=== PATIENT | female | born 1980 | race Hispanic/Latino ===

== ENCOUNTER 2016-07-14 13:55 | Emergency (ER) | payer OTHER ==
[2016-07-14 14:11] VITALS: BP 144/87
[2016-07-14] MEDS ORDERED: MOTRIN PO ONE (18:19)
[2016-07-14] MEDS ORDERED: BOOSTRIX IM ONE (18:19)
--- NOTE | 2016-07-14 18:19 | Emergency Department Report ---
ED Laceration HPI - HPI Chief Complaint: Wound/Laceration Stated Complaint: SLICED THUMB Time Seen by Provider: 07/14/16 18:15 Occurred When: Today Severity: mild Tetanus Status: Not up to Date Laceration Symptoms: Yes Pain, No Foreign Body Sensation, No Numbness, No Weakness Other History: 36-year-old female past medical history none presents with complaint of laceration to right distal thumb. Patient states that she was using a instrument to cut vegetables which slipped in her hand and cut her thumb earlier today. Patient has visible small flap of skin left distal thumb patient states her tetanus is not up-to-date. ED Review of Systems ROS: Stated complaint: SLICED THUMB Other details as noted in HPI Constitutional: denies: chills, fever Eyes: denies: eye pain, eye discharge, vision change ENT: denies: ear pain, throat pain Respiratory: denies: cough, shortness of breath, wheezing Cardiovascular: denies: chest pain, palpitations Endocrine: no symptoms reported Gastrointestinal: denies: abdominal pain, nausea, diarrhea Genitourinary: denies: urgency, dysuria, discharge Musculoskeletal: denies: back pain, joint swelling, arthralgia Skin: denies: rash, lesions Neurological: denies: headache, weakness, paresthesias Psychiatric: denies: anxiety, depression Hematological/Lymphatic: denies: easy bleeding, easy bruising ED Past Medical Hx - Past Medical History Previous Medical History?: No - Surgical History Past Surgical History?: Yes Hx Cholecystectomy: Yes - Social History Smoking Status: Current Every Day Smoker Substance Use Type: None - Medications Home Medications: Home Medications Medication Instructions Recorded Confirmed Last Taken Type Cephalexin [Keflex] 500 mg PO Q12HR #10 cap 07/14/16 Unknown Rx Ibuprofen [Motrin] 600 mg PO Q8H PRN #30 tablet 07/14/16 Unknown Rx Neomycn/Baci Zn/Pmyx Bs/Pramox 28 gm TP BID #1 oint...g. 07/14/16 Unknown Rx [Triple Antibioti-Pain Rlf Oint] Laceration Physical Exam - Exam General: Vital signs noted. No distress. Alert and acting appropriately. Wound Length (cm): 1 Laceration Exam: Yes Normal Distal CMS, No Foreign Body, No Exposed Tendon, Vessel, or Nerve, No Tendon Injury ED Course Vital Signs 07/14/16 14:07 Temperature 97.8 F Pulse Rate 109 H Respiratory 16 Rate Blood Pressure 144/87 O2 Sat by Pulse 100 Oximetry - Laceration /Wound Repair Left Finger Wound Location: upper extremity Wound Length (cm): 1 Wound's Depth, Shape: superficial Wound Explored: clean Irrigated w/ Saline (ccs): 100 Betadine Prep?: Yes Anesthesia: 1% Lidocaine Volume Anesthetic (ccs): 2 Wound Debrided: minimal Suture Size/Type: 4:0, nylon Number of Sutures: 4 Layer Closure?: No Sterile Dressing Applied?: Yes (triple abx and gauze) ED Medical Decision Making - Medical Decision Making A/P: Laceration to left thumb fingertip 1-wound closed with sutures. Good capillary refill distal range of motion fully intact left thumb 2-tetanus updated 3-Motrin 600 when necessary triple antibiotic ointment Keflex 500 mg twice a day 5 days 4-sutures to be removed in 7 days Critical care attestation.: If time is entered above; I have spent that time in minutes in the direct care of this critically ill patient, excluding procedure time. ED Disposition Clinical Impression: Finger laceration Qualifiers: Encounter type: initial encounter Qualified Code(s): S61.219A - Laceration without foreign body of unspecified finger without damage to nail, initial encounter Disposition: DISCHARGED TO HOME OR SELFCARE Is pt being admited?: No Does the pt Need Aspirin: No Condition: Stable Instructions: Laceration (ED), Finger Laceration (ED), Suture Care (ED) Prescriptions: Cephalexin [Keflex] 500 mg PO Q12HR #10 cap Ibuprofen [Motrin] 600 mg PO Q8H PRN #30 tablet PRN Reason: Pain Neomycn/Baci Zn/Pmyx Bs/Pramox [Triple Antibioti-Pain Rlf Oint] 28 gm TP BID #1 oint...g. Time of Disposition: 19:43
[2016-07-14] MEDS ORDERED: XYLOCAINE 1% 20 mL INFILTRATI ONE (18:21)
[2016-07-14] MEDS ORDERED: XYLOCAINE 2% INFILTRATI ONE ×2 (18:24→18:29)
== END 2016-07-14 22:18 | disposition home or self-care (01) ==
LOC: ED 13:55
DX: S61.011A Laceration without foreign body of right thumb without damage to nail, initial encounter (principal); Y99.8 Other external cause status; F17.200 Nicotine dependence, unspecified, uncomplicated; W26.8XXA Contact with other sharp object(s), not elsewhere classified, initial encounter; Y93.G3 Activity, cooking and baking; Y92.89 Other specified places as the place of occurrence of the external cause; Z88.5 Allergy status to narcotic agent
CPT/HCPCS: 90471; 90715